=== PATIENT | female | born 1985 | race Two or more races ===

== ENCOUNTER 2022-01-14 13:36 | Emergency (ER) | payer OTHER ==
[~2022-01-14] VITALS: Ht 162.6 cm; Wt 81.6 kg
[~2022-01-14 13:36] MED LIST: MOTRIN800 MG PO
== END 2022-01-14 23:24 | disposition home or self-care (01) ==
LOC: ER 13:36
DX: K52.9 Noninfective gastroenteritis and colitis, unspecified (principal)

== ENCOUNTER → 2022-01-18 | Emergency (ER) | payer OTHER ==
[~2022-01-18] VITALS: Ht 160 cm; Wt 81.6 kg
== END | disposition left against medical advice (07) ==
LOC: ER 16:30
DX: Z53.21 Procedure and treatment not carried out due to patient leaving prior to being seen by health care provider (principal)

== ENCOUNTER → 2022-05-22 | Emergency (ER) | payer OTHER ==
[~2022-05-22] VITALS: Ht 157.5 cm; Wt 63.5 kg
== END | disposition left against medical advice (07) ==
LOC: ER 13:47
DX: Z53.21 Procedure and treatment not carried out due to patient leaving prior to being seen by health care provider (principal)

== ENCOUNTER 2022-06-27 16:01 | Emergency (ER) | payer OTHER ==
[~2022-06-27] VITALS: Ht 165.1 cm; Wt 81.6 kg
== END 2022-06-27 19:33 | disposition home or self-care (01) ==
LOC: ER 16:01
DX: R11.10 Vomiting, unspecified (principal); Z91.013 Allergy to seafood; Z88.5 Allergy status to narcotic agent; Z91.041 Radiographic dye allergy status

== ENCOUNTER → 2022-07-12 | Emergency (ER) | payer OTHER ==
[~2022-07-12] VITALS: Ht 162.6 cm; Wt 81.6 kg
== END | disposition home or self-care (01) ==
LOC: ER 19:20
DX: K52.89 Other specified noninfective gastroenteritis and colitis (principal)

== ENCOUNTER 2022-08-25 16:01 | Emergency (ER) | payer OTHER ==
[~2022-08-25] VITALS: Ht 165.1 cm; Wt 89.8 kg
[2022-08-25] MEDS ORDERED: LEVSIN/SL0.125 MG SL (22:18)
[2022-08-25] MEDS ORDERED: CARAFATE1 GM PO (22:18)
[2022-08-25] MEDS ORDERED: PEPCID AC20 MG PO (22:18)
== END 2022-08-25 22:23 | disposition home or self-care (01) ==
LOC: ER 16:01
DX: K52.9 Noninfective gastroenteritis and colitis, unspecified (principal); R11.2 Nausea with vomiting, unspecified; Z88.5 Allergy status to narcotic agent; Z88.8 Allergy status to other drugs, medicaments and biological substances; Z91.013 Allergy to seafood

== ENCOUNTER → 2022-09-26 | Emergency (ER) | payer OTHER ==
[~2022-09-26] VITALS: Ht 162.6 cm; Wt 77.1 kg
[~2022-09-26] MED LIST changes: +CARAFATE1 GM PO; +LEVSIN/SL0.125 MG SL; +PEPCID AC20 MG PO
== END | disposition home or self-care (01) ==
LOC: ER 17:00
DX: K52.9 Noninfective gastroenteritis and colitis, unspecified (principal); Z88.6 Allergy status to analgesic agent; Z91.013 Allergy to seafood

== ENCOUNTER 2023-05-02 11:30 | Emergency (ER) | payer OTHER ==
[~2023-05-02] VITALS: Ht 160 cm; Wt 102.1 kg
[2023-05-02] MEDS ORDERED: CEFTRIAXONE SODIUM 1,000 MG VIAL IM STA (12:46)
[2023-05-02 13:11] LABS: HEMATOCRIT 36.9 % (36.0-45.00); HEMOGLOBIN 12.6 g/dL (12.0-15.00); MEAN CELL VOLUME 90.8 fL (80.00-100.00); MEAN CORPUSCULAR HGB CONC 34.2 g/dl (32.0-36.0); PLATELET COUNT 419 K/uL (150-450); RED BLOOD COUNT 4.07 M/uL (4.00-6.00)
== END 2023-05-02 13:40 | disposition home or self-care (01) ==
LOC: ER 11:31
PROVIDERS: General Practice
DX: S90.822A Blister (nonthermal), left foot, initial encounter (principal); S90.821A Blister (nonthermal), right foot, initial encounter; X58.XXXA Exposure to other specified factors, initial encounter; Y93.9 Activity, unspecified; Y92.9 Unspecified place or not applicable; Y99.9 Unspecified external cause status; Z88.8 Allergy status to other drugs, medicaments and biological substances; Z91.013 Allergy to seafood

== ENCOUNTER → 2023-10-10 | Emergency (ER) | payer OTHER ==
[~2023-10-10] VITALS: Ht 165.1 cm; Wt 99.8 kg
[~2023-10-10] MED LIST changes: +KETOROLAC TROMETHAMINE 30 MG VIAL IM ONE; +KETOROLAC TROMETHAMINE 30 MG VIAL ONE
[2023-10-10 10:30] LABS: HEMATOCRIT 36.3 % (36.0-45.00); HEMOGLOBIN 12.3 g/dL (12.0-15.00); MEAN CELL VOLUME 89.7 fL (80.00-100.00); MEAN CORPUSCULAR HEMOGLOBIN 30.4 pg (27.00-32.0); MEAN CORPUSCULAR HGB CONC 33.9 g/dl (32.0-36.0); PLATELET COUNT 409 K/uL (150-450); RED BLOOD COUNT 4.05 M/uL (4.00-6.00); RED CELL DISTRIBUTION WIDTH 14.1 % (11.5-14.5)
== END | disposition left against medical advice (07) ==
LOC: ER 09:01
PROVIDERS: General Practice
DX: N93.9 Abnormal uterine and vaginal bleeding, unspecified (principal); Z91.013 Allergy to seafood; Z88.8 Allergy status to other drugs, medicaments and biological substances

== ENCOUNTER → 2025-02-06 | Emergency (ER) | payer OTHER ==
[~2025-02-06] VITALS: Ht 165.1 cm; Wt 81.6 kg
[~2025-02-06] MED LIST changes: -KETOROLAC TROMETHAMINE 30 MG VIAL IM ONE; -KETOROLAC TROMETHAMINE 30 MG VIAL ONE
== END | disposition left against medical advice (07) ==
LOC: ER 13:49
DX: G89.11 Acute pain due to trauma (principal); R51.9 Headache, unspecified; R42 Dizziness and giddiness; Z88.5 Allergy status to narcotic agent; Z91.013 Allergy to seafood; Z91.041 Radiographic dye allergy status